=== PATIENT | male | born 1950 | race Caucasian/White ===

== ENCOUNTER 2017-11-18 14:05 | Emergency (ER) | payer MEDICARE ==
[2017-11-18 14:10] VITALS: BP 118/72
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
== END 2017-11-18 14:45 | disposition home or self-care (01) ==
LOC: CC.ED 14:05
DX: S90.02XA Contusion of left ankle, initial encounter (principal); R79.1 Abnormal coagulation profile; Z91.012 Allergy to eggs; Z91.013 Allergy to seafood; Z91.018 Allergy to other foods; Z79.899 Other long term (current) drug therapy; Z79.01 Long term (current) use of anticoagulants; W22.8XXA Striking against or struck by other objects, initial encounter
CPT/HCPCS: 99282; 99283

== ENCOUNTER 2018-01-21 05:05 | Emergency (ER) | payer MEDICARE ==
[2018-01-21] MEDS ORDERED: fentaNYL 100 MCG/2 ML SDV IVPUSH ONE ×3 (05:21→06:52)
[2018-01-21 06:03] LABS: CHLORIDE,CL 98 mEq/L (98-106); SODIUM,NA 140 mEq/L (136-145)
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
[2018-01-21] MEDS ORDERED: Iopamidol 612 MG/ML 100 ML Bottle IVPUSH ONE (06:13)
[2018-01-21] MEDS ORDERED: Phytonadione 5 MG in Sodium Chloride 0.9% 50 ML IV ONE (07:16)
[2018-01-21] MEDS ORDERED: NS + KCl 20mEq/L 1,000 ML IV SCH (07:30)
[2018-01-21 07:48] VITALS: BP 147/79
== END 2018-01-21 08:13 ==
LOC: CC.ED 05:05
DX: S36.113A Laceration of liver, unspecified degree, initial encounter (principal); Z91.012 Allergy to eggs; Z79.899 Other long term (current) drug therapy; X58.XXXA Exposure to other specified factors, initial encounter
CPT/HCPCS: 36415; 71046; 74019; 74177; 80053; 81001; 82150; 82550; 83615; 84484; 85025; 85379; 85610; 85730; 86140; 93005; 96361; 96372; 96374; 96375; 96376; 99285; J3010; J3430; J3480; Q9967

== ENCOUNTER → 2019-07-05 | Day surgery (SDC) | payer MEDICARE, OTHER ==
[~2019-07-05] MED LIST: Lactated Ringers 1,000 ML IV SCH; Propofol 200 MG/20 ML SDV IV ONE
[2019-07-05 12:16] VITALS: BP 143/66; PULSE 64
--- NOTE | 2019-07-08 09:18 | OR ---
DATE OF OPERATION: 07/05/2019 PREOPERATIVE DIAGNOSIS: FOLLOWUP POLYPS. POSTOPERATIVE DIAGNOSIS: FOLLOWUP POLYPS. SURGEON: Zach Martinez MD PROCEDURE: FULL-LENGTH COLONOSCOPY. ANESTHESIA: MAC. COMPLICATIONS: None. SPECIMEN: None. FINDINGS: 1. Full-length colonoscopy. 2. No polyp recurrence. 3. Pandiverticulosis, moderate. RECOMMENDATIONS: Followup colonoscopy in 5 years. INDICATIONS: The patient is a 68-year-old male who had a prior large villous polyp removal at the hepatic flexure. A 6-month followup for complete removal was accomplished 3 years ago. This is a followup for that. DESCRIPTION OF PROCEDURE: The patient was prepped and draped, placed in the left lateral decubitus position. A lubricated Olympus colonoscope was inserted and with ease advanced to the cecum. Direct visualization of the ileocecal valve and appendiceal orifice was accomplished. The bowel prep was excellent. Upon withdrawal, the patient does have pandiverticular disease extending all the way deep into the right colon. As expected, worse in the sigmoid and rectosigmoid regions. No inflammatory changes were seen. Thorough evaluation of the entire hepatic flexure region showed no signs of polyp recurrence. Throughout the length of the colon, there were no other polyps, masses, ulceration, or bleeding sites. No vascular abnormalities or signs of colitis. The rectal vault was benign. Retroflexion showed no anal lesions. Air was suctioned, scope removed without complication. PASTORA/ADELA /[id number]
== END ==
LOC: CC.SDS 10:24
PROVIDERS: ATTEND Family Medicine
DX: Z12.11 Encounter for screening for malignant neoplasm of colon (principal); N40.1 Benign prostatic hyperplasia with lower urinary tract symptoms; I10 Essential (primary) hypertension; I26.99 Other pulmonary embolism without acute cor pulmonale; Z90.49 Acquired absence of other specified parts of digestive tract; Z79.01 Long term (current) use of anticoagulants; Z86.010 Personal history of colon polyps
CPT/HCPCS: 36415; 85610; G0121; J2704; J7120

== ENCOUNTER 2022-06-17 09:30 | Inpatient (IN) | payer MEDICARE, OTHER ==
[2022-06-17] MEDS ORDERED: Aspirin 81 MG Tab.Chew PO ONE (09:36)
[2022-06-17] MEDS ORDERED: Furosemide 40 MG/4 ML VIAL IVPUSH ONE (09:47)
[2022-06-17 10:44] LABS: PTT,PARTIAL THROMBOPLSTIN TIME 45.3 SEC (23.2-32.3)
[2022-06-17] MEDS ORDERED: Sodium Chloride 0.9% 10 ML Syringe FLUSH PRN (11:05)
[2022-06-17] MEDS ORDERED: Ondansetron 4 MG Tab.DIS PO PRN (11:05)
[2022-06-17] MEDS ORDERED: Polyethylene Glycol 3350 Powder 17 GM Packet PO PRN (11:05)
[2022-06-17] MEDS ORDERED: Docusate Sodium 100 MG Cap PO PRN (11:05)
[2022-06-17] MEDS ORDERED: Acetaminophen 325 MG Tab PO PRN (11:05)
[2022-06-17] MEDS ORDERED: diphenhydrAMINE 25 MG Cap PO PRN (11:14)
[2022-06-17] MEDS ORDERED: Pseudoephedrine 30 MG Tab PO PRN (14:32)
[2022-06-17] MEDS: Furosemide 40 MG/4 ML VIAL IVPUSH SCH (16:09)
[2022-06-18] MEDS: Tamsulosin 0.4 MG Cap.ER PO SCH (07:37)
[2022-06-18] MEDS: Furosemide 40 MG/4 ML VIAL IVPUSH SCH (07:38)
[2022-06-18] MEDS: Loratadine 10 MG Tab PO SCH (07:38)
[2022-06-18] MEDS ORDERED: Warfarin 2.5 MG Tab PO SCH (08:00)
[2022-06-18] MEDS ORDERED: [UNRECOGNIZED DRUG - REMARK] SCH (08:00)
[2022-06-18] MEDS ORDERED: Potassium Gluconate (99 MG) 2 MEQ Tab PO SCH (08:00)
[2022-06-18] MEDS ORDERED: Pseudoephedrine 30 MG Tab PO PRN (08:00)
[2022-06-18] MEDS: amLODIPine 10 MG Tab PO SCH (08:15)
[2022-06-18] MEDS: Warfarin 2.5 MG Tab PO SCH (11:55)
[2022-06-18] MEDS: Potassium Chloride 10 MEQ Tab.ER PO SCH ×2 (12:05→16:43)
[2022-06-18] MEDS: Furosemide 20 MG Tab PO SCH (16:43)
[2022-06-19] MEDS: Furosemide 20 MG Tab PO SCH (08:05)
[2022-06-19] MEDS: Potassium Chloride 10 MEQ Tab.ER PO SCH (08:05)
[2022-06-19] MEDS: Loratadine 10 MG Tab PO SCH (08:05)
[2022-06-19] MEDS: Tamsulosin 0.4 MG Cap.ER PO SCH (08:05)
[2022-06-19 08:06] VITALS: BP 117/64
[2022-06-19] MEDS: amLODIPine 10 MG Tab PO SCH (08:06)
[2022-06-19 08:21] VITALS: PULSE 78
[2022-06-19] MEDS ORDERED: Potassium Chloride 10 MEQ Tab.ER PO STA (10:30)
[2022-06-19] MEDS ORDERED: Furosemide 20 MG Tab PO ONE (10:30)
[2022-06-19] MEDS: Warfarin 2.5 MG Tab PO SCH (11:34)
== END 2022-06-19 12:45 | disposition home or self-care (01) | DRG 293 ==
LOC: CC.ED 09:30 → CC.MS 10:55 → UNDOADMIN 10:55 → CC.MS 10:59
PROVIDERS: ADMIT Nurse Practitioner Family; ATTEND Nurse Practitioner Family
DX: I50.9 Heart failure, unspecified (principal); H54.7 Unspecified visual loss; E87.6 Hypokalemia; R09.02 Hypoxemia; Z91.012 Allergy to eggs; Z91.013 Allergy to seafood; Z91.018 Allergy to other foods; Z20.822 Contact with and (suspected) exposure to COVID-19; N40.0 Benign prostatic hyperplasia without lower urinary tract symptoms; Z79.01 Long term (current) use of anticoagulants; Z90.49 Acquired absence of other specified parts of digestive tract; Z79.899 Other long term (current) drug therapy; Z86.718 Personal history of other venous thrombosis and embolism
CPT/HCPCS: 36415; 71045; 80048; 80053; 83735; 83880; 84484; 85025; 85379; 85610; 85730; 86140; 87804; 93005; 93010; 93306; 96374; 99285-25; A9270-GY; J1940; U0002

== ENCOUNTER 2023-02-27 08:11 | Emergency (ER) | payer MEDICARE, OTHER, MEDICAID ==
[2023-02-27 08:43] LABS: BASOPHILS ABSOLUTE AUTO 0.03 10^3/uL (0.00-0.50); BASOPHILS PERCENT AUTO 0.5 % (0-1); EOSINOPHILS ABSOLUTE AUTO 0.34 10^3/uL (0.00-1.50); EOSINOPHILS PERCENT AUTO 5.4 % (0-6); HEMATOCRIT 34.9 % (42.0-52.0); HEMOGLOBIN 11.9 g/dL (14.0-18.0); IMMATURE GRAN ABSOLUTE AUTO 0.02 10^3/uL (0.00-0.49); IMMATURE GRAN PERCENT AUTO 0.3 % (0.0-4.9); LYMPHOCYTES ABSOLUTE AUTO 1.05 10^3/uL (0.60-5.00); LYMPHOCYTES PERCENT AUTO 16.7 % (24-44); MEAN CORPUSCULAR HEMOGLOBIN 32.5 pg (27.0-32.0); MEAN CORPUSCULAR HGB CONC 34.1 g/dL (32.0-36.0); MEAN CORPUSCULAR VOLUME 95.4 fL (83.0-97.0); MONOCYTES ABSOLUTE AUTO 0.69 10^3/uL (0.00-1.50); NEUTROPHILS ABSOLUTE AUTO 4.15 x10^3/uL (1.80-8.00); NEUTROPHILS PERCENT AUTO 66.1 % (41-71); PLATELET COUNT,PLT 214 10^3/uL (150-400); RED BLOOD CELL COUNT 3.66 x10^6/uL (4.50-6.00); WHITE BLOOD CELL COUNT,WBC 6.3 10^3/uL (4.0-11.0)
[2023-02-27 08:57] LABS: INR 3.26 (0.92-1.18); PROTHROMBIN TIME 32.4 SEC (9.3-11.3)
[2023-02-27 09:08] LABS: ALANINE AMINOTRANSFERASE,ALT 26 U/L (12-78); ALBUMIN 3.7 g/dL (3.4-5.0); ALKALINE PHOSPHATASE 90 U/L (46-116); ASPARTATE AMNIOTRANSFERASE,AST 28 U/L (15-37); BILIRUBIN TOTAL 0.7 mg/dL (0.0-1.0); BLOOD UREA NITROGEN,BUN 17 mg/dL (7-18); CALCIUM 8.5 mg/dL (8.4-10.1); CARBON DIOXIDE,CO2 25 mmol/L (21-32); CHLORIDE,CL 98 mEq/L (98-106); CREATININE 1.2 mg/dL (0.7-1.3); GLUCOSE RANDOM 91 mg/dL (75-99); LIPASE 25 U/L (16-77); POTASSIUM,K 4.4 mEq/L (3.5-5.0); PRO B-TYPE NATRIUR PEPT,BNPPRO 1058 pg/mL (0-1000); PROTEIN TOTAL,TP 7.1 g/dL (6.4-8.2); SODIUM,NA 134 mEq/L (136-145)
[2023-02-27 09:20] LABS: ESTIMATED GFR 64 mL/min (>=60)
[2023-02-27] MEDS ORDERED: Lidocaine 5% 700 MG Patch TRDERM ONE (11:02)
[2023-02-27] MEDS ORDERED: Lidocaine 1% with EPINEPHrine 1:100,000 20 ML MDV INJECT ONE (11:02)
[2023-02-27] MEDS ORDERED: Diphtheria/Tetanus Toxoids,Adult (Td) 0.5 ML SDV IM ONE (11:03)
[2023-02-27 13:03] VITALS: BP 140/85; PULSE 67
== END 2023-02-27 12:20 | disposition home or self-care (01) ==
LOC: CC.ED 08:11
DX: S22.32XA Fracture of one rib, left side, initial encounter for closed fracture (principal); S01.81XA Laceration without foreign body of other part of head, initial encounter; Z23 Encounter for immunization; Z20.822 Contact with and (suspected) exposure to COVID-19; Z91.018 Allergy to other foods; Z91.013 Allergy to seafood; Z91.012 Allergy to eggs; Z79.01 Long term (current) use of anticoagulants; Z79.899 Other long term (current) drug therapy; X58.XXXA Exposure to other specified factors, initial encounter
CPT/HCPCS: 12011; 36415; 70450; 71101-LT; 80053; 83690; 83735; 83880; 84484; 85025; 85610; 87804; 90471; 90714; 93005; 93010; 99284; 99284-25; A9270-GY; J3490; U0002